=== PATIENT | female | born 1980 | race Caucasian/White ===

== ENCOUNTER 2017-08-25 07:57 | Day surgery (SDC) | payer OTHER ==
--- NOTE | 2017-08-11 11:10 | HP ---
AMENDED REPORT NOW INCLUDES COSIGNER DESIGNATION - ESIGNED BEFORE ADJUSTMENTS CC: Kirsten Piña MD; Victor Manuel Tenorio MD * ADMISSION HISTORY AND PHYSICAL: DATE OF ADMISSION: 08/25/17 ATTENDING SURGEON: Mercedes Espinal MD * (FRANKIE Jung, dictating). CHIEF COMPLAINT: Bloody right nipple discharge. HISTORY OF PRESENT ILLNESS: This is a 36-year-old generally healthy female who about a month ago noted bloody nipple discharge on self-exam. This was expressible discharge as opposed to any spontaneous discharge. She has not had any recent imaging of the breast. She was seen by Dr. Espinal in the office on 07/04/17 and at that time, exam confirmed the presence of heme-positive drainage expressed from the right nipple. There were no dominant masses in either breast and no palpable axillary adenopathy. The patient did undergo a biopsy of the right breast for benign disease approximately [address] Espinal has discussed with her the indications for surgery, the risks, benefits, and alternatives. She would like to proceed as scheduled with right breast terminal duct excision. PAST MEDICAL HISTORY: Allergic rhinitis. Past history of GERD (including a couple of EGDs required for food being stuck, this has not occurred since 2010 nor has she had recurrent GERD symptoms in recent years). PAST SURGICAL HISTORY: Include right shoulder surgery, mole excisions, and C- section x2. CURRENT MEDICATIONS: 1. Multivitamin daily. 2. ParaGard IUD. DRUG ALLERGIES: SINGULAIR (difficulty breathing), VERSED and/or DEMEROL ( decreased heart rate). FAMILY HISTORY: Notable for mother having had a PE in her 20s while on control pills. No other additional family history of thromboembolic disease. No problems related to anesthesia. No bleeding disorders. SOCIAL HISTORY: The patient lives with her partner, she has 2 children. 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 She denies use of tobacco. She drinks between 1 to 2 drinks per week. She denies any other recreational drug use. REVIEW OF SYSTEMS: General: No recent constitutional symptoms or acute illnesses. Cardiovascular: No chest pain, palpitations, history of hypertension or heart murmur. Respiratory: No history of asthma, chronic cough or shortness of breath. Seasonal allergies for which she will occasionally use [id number] loratadine, but not at present. GI: As above. No additions. She has never had a colonoscopy. : No problems reported. 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 See also above for HPI. Endocrine: No diabetes or thyroid dysfunction. PHYSICAL EXAMINATION GENERAL: Well-nourished, well-developed female, in no acute distress. VITAL SIGNS: Height 5 feet 10 inches, weight 188 pounds. Blood pressure 120/80 , pulse 72, respirations 16. HEENT: Pupils are equal, round, and reactive. EOM's intact. No conjunctival pallor. Oropharynx: Teeth in good repair. No intraoral lesions. NECK: No lymphadenopathy in the cervical or supraclavicular region. No thyromegaly or masses. LUNGS: Clear to auscultation. No rales or wheezes. HEART: Regular rate and rhythm. No murmur noted. BREASTS: Not reexamined today. See above per Dr. Espinal's exam. ABDOMEN: Soft, nontender to palpation. No palpable masses or organomegaly. GENITALIA: Not examined. RECTAL: Not examined. BACK: No spinous process or CVA tenderness. EXTREMITIES: No edema. NEUROLOGIC: Grossly intact. SKIN: Warm and dry. No suspicious rashes or lesions noted. IMPRESSION: Bloody right nipple discharge. PLAN: Terminal duct excision, right breast. FRANKIE JUNG [id number]/[facility] #: [id number] [facility]
[~2017-08-25 07:57] MED LIST: Acetaminophen TAB* 325 MG ONE; Acetaminophen TAB* 325 MG PO ONE; Buffered Lidocaine 0.9% SYRIN* 5 ML/SYR SYRINGE INTRADERM ONE; Buffered Lidocaine 0.9% SYRIN* 5 ML/SYR SYRINGE ONE; Dexamethasone IV* 4 MG/ML 1 ML (4 MG) IV SLOW PU ONE; Dexamethasone IV* 4 MG/ML 1 ML (4 MG) ONE; Famotidine IV* 10 MG/ML 2 ML (20 mg) IV ONE; Famotidine IV* 10 MG/ML 2 ML (20 mg) ONE; ceFAZolin 2 GM PREMIX (*) 2 GM/50 ML BAG IVPB ONE
[2017-08-25] MEDS ORDERED: Bupivacaine 0.5% SDV PF* 30 ML VIAL ONE (08:21)
[2017-08-25] MEDS ORDERED: Lidocaine 1% INJ* 10 MG/ML 30 ML SDV ONE (08:21)
[2017-08-25] MEDS ORDERED: Lidocaine 2% PF * 5 ML VIAL ONE (08:40)
[2017-08-25] MEDS ORDERED: Propofol* 10 MG/ML 20 ML BTL IV PUSH ONE ×2 (08:40→09:18)
[2017-08-25] MEDS ORDERED: Midazolam* 1 MG/ML 2 ML VIAL (2 MG) ONE (08:41)
[2017-08-25] MEDS ORDERED: fentaNYL* 50 MCG/ML 2 ML VIAL (100 MCG VIAL) ONE (08:42)
[2017-08-25] MEDS ORDERED: KETAMINE HCL* 50 MG/ML 10 ML VIAL ONE (09:10)
[2017-08-25] MEDS ORDERED: Scopolamine 1.5 mg* PATCH TRANSDERM PRN (09:20)
[2017-08-25] MEDS ORDERED: oxyCODONE TAB* 5 MG TAB PO PRN (09:20)
[2017-08-25] MEDS ORDERED: Ibuprofen TAB* 600 MG PO PRN (09:20)
[2017-08-25] MEDS ORDERED: Ondansetron INJ* 2 MG/ML VIAL IV PRN (09:20)
[2017-08-25] MEDS ORDERED: HYDROmorphone INJ* 1 MG/ML CARPUJECT SYRINGE IV PRN (09:20)
[2017-08-25] MEDS ORDERED: fentaNYL* 50 MCG/ML 2 ML VIAL (100 MCG VIAL) IV PRN (09:20)
[2017-08-25] MEDS ORDERED: oxyCODONE/Acetamin 5/325 MG* TAB PO PRN (10:09)
[2017-08-25 10:45] VITALS: BP 122/78
--- NOTE | 2017-08-25 10:49 | SURGPN ---
Brief Operative Note - Surgery Procedures: 08/25/17 Op Note (dictated) Pre-op dx: Right breast bloody nipple discharge Post-op dx: same Procedure: right breast terminal duct excision. Surgeon: Teddy Asst: none Anesth: local-MAC EBL: 10 cc complications: none SCDs on during surgery Abx: given pre-op Pt. tolerated procedure well and was transferred to in a stable condition. [facility]
--- NOTE | 2017-08-25 23:53 | OP ---
CC: [facility]; Dr. Kirsten Piña OPERATIVE REPORT: DATE OF OPERATION: 08/25/17 DATE OF : 76 SURGEON: Mercedes Espinal MD SUPERVISOR DUMPING: There was no engineer third assistant for this case. PRE-OP DIAGNOSIS: Right breast bloody nipple discharge. POST-OP DIAGNOSIS: Right breast bloody nipple discharge. OPERATIVE PROCEDURE: Right breast terminal duct excision. INDICATIONS: Ms. Pal is a 36-year-old woman with recently identified bloody nipple discharge , prompting the plan for surgical intervention. DESCRIPTION OF PROCEDURE: Prior to coming back to the OR, the ducts producing the bloody nipple dis charge was marked and she was then brought back to the operating room. She was placed on the OR tab le in a supine position and given IV sedation. The right breast was prepped and draped in the usual sterile fashion. The duct was again identified and then local anesthetic was instilled in a circuma reolar fashion. The probe was inserted into the duct and an incision following the line had been ma rked preoperatively was made. Subcutaneous tissue was divided with electrocautery to elevate the ar eola until ducts could be identified. Individual ducts were isolated and ligated until the duct wit h a probe in it was identified, this was encircled. With use of blunt dissection, isolated and divi ded. A second duct with some dark discharge in it was also identified and this was likewise encircl ed and divided and ligated. These two ducts were grasped and using electrocautery, a cone of tissue from around the duct was excised and then the specimen was marked in the usual fashion with the add itional marking of double stitch marking the duct, this was handed off as a specimen. Hemostasis wa s assured then with electrocautery and additional local was instilled into the wound and closure was accomplished with 3-0 Polysorb in the subcutaneous layer and the skin was closed with 4-0 Surgipro in a subcuticular fashion. Steri-Strips and a dry sterile dressings were applied. All sponge and i nstrument counts were correct. The patient tolerated the procedure well and was transferred to [facility] in a stable condition. [id number]/[facility] #: [id number]
[2017-08-28] MEDS ORDERED: Scopolomine PATCH Remove* 1 NOTE MISC PATCH OFF ONE (09:25)
== END 2017-08-25 11:00 | disposition home or self-care (01) ==
LOC: OR 07:57
PROVIDERS: ATTEND Surgery
DX: N64.52 Nipple discharge (principal); N60.41 Mammary duct ectasia of right breast; K21.9 Gastro-esophageal reflux disease without esophagitis
CPT/HCPCS: 81025; 88307; A9270-GY; J0690; J1100; J2001; J2250; J2704; J3010